=== PATIENT | female | born 1990 | race Caucasian/White ===

== ENCOUNTER 2019-07-20 12:59 | Emergency (ER) | payer OTHER ==
[2019-07-20 13:11] VITALS: BP 116/77; PULSE 70; TEMP 98.5; BMI 24.7
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
[2019-07-20] MEDS ORDERED: IBUPROFEN 600 MG TABLET (FP) PO ONE ×2 (13:35→13:38)
== END 2019-07-20 14:21 | disposition home or self-care (01) ==
LOC: FER 12:59
DX: S13.4XXA Sprain of ligaments of cervical spine, initial encounter (principal); V43.52XA Car driver injured in collision with other type car in traffic accident, initial encounter; Y93.89 Activity, other specified; Y92.410 Unspecified street and highway as the place of occurrence of the external cause; Z91.040 Latex allergy status
CPT/HCPCS: 72050-TC-FY; 99283-25